=== PATIENT | female | born 1960 | race Caucasian/White ===

== ENCOUNTER → 2023-05-06 06:30 | Day surgery (SDC) | payer OTHER, SELFPAY | LOC: GI 06:30 | PROVIDERS: ATTENDING PHYSICIAN Internal Medicine | DX: Z12.11 Encounter for screening for malignant neoplasm of colon (principal); K57.30 Diverticulosis of large intestine without perforation or abscess without bleeding | CPT/HCPCS: G0121 ==

== ENCOUNTER → 2023-08-24 17:25 | Outpatient (REF) | payer OTHER, SELFPAY | LOC: HWWDC 17:25 | PROVIDERS: ATTENDING PHYSICIAN Nurse Practitioner | DX: Z12.31 Encounter for screening mammogram for malignant neoplasm of breast (principal) | CPT/HCPCS: 77063; 77067 ==

== ENCOUNTER → 2024-06-27 10:12 | Outpatient (REF) | payer OTHER, SELFPAY | LOC: HWRAD 10:12 | PROVIDERS: ATTENDING PHYSICIAN Obstetrics & Gynecology; FAMILY PHYSICIAN Internal Medicine | DX: R10.2 Pelvic and perineal pain (principal) | CPT/HCPCS: 76830; 76856 ==

== ENCOUNTER 2024-08-20 20:42 | Emergency (ER) | payer OTHER, SELFPAY ==
[2024-08-20 20:42] VITALS: BMI 23.5
[2024-08-20 20:44] VITALS: BP 153/69
[2024-08-20 20:57] LABS: % Basophils 0.5 % (0-2); % Eosinophils 5.1 % (0-6); % Immature Granulocytes 0.1 % (0-0.5); % Monocytes 6.4 % (1.7-9.3); % Neutrophils 67.9 % (42.2-75.2); Absolute Eosinophils 0.4 10^3/uL (0-0.7); Absolute Lymphocytes 1.7 10^3/uL (1.2-3.4); Absolute Monocytes 0.5 10^3/uL (0.1-0.6); Absolute Neutrophils 5.6 10^3/uL (1.4-6.5); Hematocrit 38.3 % (37.0-47.0); Hemoglobin 13.3 g/dL (12.0-16.0); Mean Corp Hgb Conc. 34.7 g/dL (33.0-37.0); Mean Corpuscular Hgb 30.9 pg (27.0-31.0); Mean Corpuscular Volume 88.9 fL (81.0-99.0); Mean Platelet Volume 9.3 fL (7.4-10.4); Nucleated Red Blood Cells % 0 %; Platelet Count 307 10^3/uL (130-400); Red Blood Cell Count 4.31 10^6/uL (4.20-5.40); Red Cell Dist. Width 12.1 % (11.5-14.5); White Blood Cell Count 8.2 10^3/uL (4.8-10.8)
[2024-08-20 21:23] LABS: ALT (SGPT) 25 U/L (0-35); AST (SGOT) 24 U/L (14-36); Albumin 4.2 g/dl (3.5-5.0); Alkaline Phosphatase 78 U/L (38-126); Blood Urea Nitrogen 11 mg/dl (7-17); Calcium 9.6 mg/dl (8.4-10.2); Carbon Dioxide 25 mmol/L (22-30); Chloride 106 mmol/L (98-107); Glucose 101 mg/dl (70-99); Potassium 4.6 mmol/L (3.5-5.1); Sodium 138 mmol/L (135-145); Total Bilirubin 0.3 mg/dl (0.2-1.3); Total Protein 7.1 g/dl (6.3-8.2); eGFR > 60.00
[2024-08-20 21:24] LABS: Lipase 40 U/L (23-300)
[2024-08-20 22:21] VITALS: BP 117/88
--- NOTE | 2024-08-20 22:28 | ED.GENMED ---
History of Present Illness
General
Chief Complaint: Abdominal Symptoms
Source: patient and spouse
Exam Limitations: none
Time Seen by Provider: 08/20/24 22:16
Nursing documentation reviewed up to this point in time: agreed with
History of Present Illness
History of Present Illness:
Note:
CHIEF COMPLAINT(S)
Abdominal pain and diarrhea for approximately 10 days.
HISTORY OF PRESENT ILLNESS
The patient, a 64-year-old female with a history of gallstones, reactive hypoglycemia, and hypothyroidism, presents with severe abdominal pain and diarrhea persistent for about 10 days. She describes the diarrhea as resembling 'jelly' and reports
experiencing it approximately six times per day. No recent travel or antibiotic use except for two courses in March was noted. The patient consumes home-grown food, including asparagus. There is no vomiting reported, though she experiences
abdominal tenderness. 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 The patient had a past occurrence of Clostridioides difficile infection, which she believes may resemble her current
symptoms, though her white blood cell count is normal at present. The provider proposed a stool test and cautioned against starting antibiotics without specific testing, mentioning the risk of exacerbating the diarrhea or causing Clostridioides
difficile infection. However, they considered empiric treatment with oral vancomycin while awaiting test results.
CHRONIC MEDICAL CONDITIONS SIGNIFICANTLY AFFECTING CARE
- Gallstones
- Reactive hypoglycemia
- Hypothyroidism
SOCIAL HISTORY
The patient reports no use of tobacco, alcohol, or recreational drugs.
MEDICATIONS
- Synthroid for hypothyroidism
- Bjgs-[id number] digestive enzymes for bile gastritis
REVIEW OF SYSTEMS
- Gastrointestinal: Severe abdominal pain, diarrhea resembling 'jelly,' abdominal tenderness. No vomiting reported.
- General: Reports of pain on presentation but not on arrival at the facility.
PHYSICAL EXAM
- Gastrointestinal: Exhibits abdominal tenderness.
Nursing notes reviewed and vital signs reviewed.
PLAN
1. Further diagnostic evaluation with a computed tomography scan if necessary, to assess for potential colitis or other inflammation.
2. Stool sample collection for testing Clostridioides difficile and other potential pathogens.
3. Discussed the empirical use of oral vancomycin while waiting for test results, due to the patients history and current symptomatology.
4. Ensure follow-up with primary care or gastroenterology for further investigation and management based on test outcomes.
DIFFERENTIAL DIAGNOSIS
The Differential Diagnosis includes, in no particular order and is not limited to:
1. Infectious colitis, including Clostridioides difficile infection
2. Inflammatory bowel disease
3. Gastroenteritis
4. Bile acid malabsorption
5. Diverticulitis
6. Ischemic colitis
7. Irritable bowel syndrome
8. Peptic ulcer disease
9. Foodborne illness
10. Medication-induced diarrhea
CARE-UPDATE
08/21/24 - 00:01
Results pending for limited sample collected. Discharge pending while awaiting dual cultures and C. difficile testing results before starting antibiotics. Follow-up planned with primary care provider.
Disposition:
SUMMARY OF ENCOUNTER
The patient, a 64-year-old female with a history of gallstones, reactive hypoglycemia, and hypothyroidism, was seen in the emergency department for severe abdominal pain and diarrhea lasting approximately 10 days. The patient reported diarrhea six
times per day and described it as resembling 'jelly.' A stool test was proposed to rule out Clostridioides difficile and other pathogens. The consideration was given to empiric treatment with oral vancomycin due to her past history of C. difficile
infection. Empirical treatment with vancomycin was discussed but withheld pending definitive stool study results.
ASSESSMENT
The patient presented with symptoms suggesting a differential of infectious colitis, Clostridioides difficile infection, inflammatory bowel disease, gastroenteritis, bile acid malabsorption, diverticulitis, ischemic colitis, irritable bowel
syndrome, peptic ulcer disease, or a foodborne illness. The current symptoms combined with the patient�s history and physical exam suggested a high index of suspicion for an infectious or inflammatory process.
PLAN
1. Recommendation for stool sample collection for Clostridioides difficile and other potential pathogens.
2. Empirical use of oral vancomycin considered while waiting for test results due to history and symptoms, but antibiotics were deferred.
3. Advised to ensure follow-up with primary care or gastroenterology for further investigation and management based on test outcomes.
FOLLOW-UP INSTRUCTIONS
Please call the office immediately to schedule a follow-up visit after the stool test results are available.
MEDICAL DECISION MAKING
Number and Complexity of Problems Addressed: The patient presented with acute gastrointestinal symptoms requiring differential diagnoses consideration including infectious and non-infectious etiologies.
Data: Tests and treatment options were evaluated, particularly stool studies for C. difficile and possible use of antibiotics were carefully considered.
Risk: Consideration of potential exacerbation of symptoms by antibiotics without definitive infection evidence, highlighting the decision to control treatment while awaiting stool culture results.
Past History
Past History
ED Past Medical History: Hypothyroidism
ED Past Surgical History: None
Social History
Tobacco: Non-smoker
Alcohol: None
Living: with family
Employment: Employed
Family History
Family History: Other (Noncontributory)
Phy Exam
Physical Exam
Physical Exam:
Physical Exam
General: no apparent distress, not acutely ill
Neck: supple. no meningeal signs. normal posterior pharynx
Heart: s1/s2 regular rate and rhythm, no murmur. equal radial
pulses.
HEENT: Pupils equal round reactive to light, EOMI
Lungs: no acute respiratory distress. clear bilaterally
Abdomen: normal bowel sounds. not tender. no CVAT
Neuro: alert and oriented. no focal neurological deficits
Skin: no rash
Psychiatric: well kept. interactive and cooperative
Extremities: no edema. good distal pulses
Course
Orders/Labs/Results
Orders:
Orders
08/20/24 20:46
IV Insert/Care/Rem.- Treatment PRN
08/20/24 20:50
Complete Blood Count/With Diff Urgent
Comprehensive Metabolic Panel Urgent
Lipase Urgent
08/20/24 23:32
CDIFF [C difficile Antigen & Toxins] Urgent
BEBA Source: Feces/Stool
Specimen Description:
Date Specimen was Collected: 08/20/24
Time Specimen was Collected: 23:31
Stool Culture Urgent
BEBA Source: Feces/Stool
Specimen Description:
Date Specimen was Collected: 08/20/24
Time Specimen was Collected: 23:31
Abnormal Lab Results
08/20/24
20:50
Lymphocytes % 20.0 L %
(20.5-51.1)
Glucose 101 H mg/dl
(70-99)
08/20/24 20:50
08/20/24 20:50
Vital Signs
Initial and Last Documented VS:
Initial Vital Signs
Temp Pulse Resp BP Pulse Ox
98.1 F 64 18 153/69 100
08/20/24 20:44 08/20/24 20:44 08/20/24 20:44 08/20/24 20:44 08/20/24 20:44
Last Documented Vital Signs
Temp Pulse Resp BP Pulse Ox
98.1 F 60 18 117/88 100
08/20/24 20:44 08/20/24 22:21 08/20/24 22:21 08/20/24 22:21 08/20/24 22:21
*Pulse Oximetry
Patient hypoxic: no (100)
*Critical Care Note
Total Time (30-74mins, 75-104mins- exclusive of procedures): Not Applicable
ED Attending Note
-
Portions of this chart may have been created with voice recognition software.� Occasional wrong word or��sound alike� substitutions may have occurred due to the inherent limitations of voice recognition software.
Discharge Plan
Departure
Patient Disposition: Home (Routine Discharge)
Date of Disposition: 08/21/24
Time of Disposition: 00:02
Patient with high blood pressure during this ER visit?: No
Condition: Good
Discharge Problem:
Diarrhea
Instructions: Diarrhea in teens and adults
Prescriptions:
No Action
Telma
1 tab PO DAILY
Patient Comments:
unsure of mg
levothyroxine [Synthroid] 100 MCG tablet
100 mcg PO DAILY
fluticasone propionate 1 SPRAY spray,suspension
1 spray intranasal BID
acetaminophen [Tylenol Extra Strength] 500 MG tablet
500 mg PO Q4HPRN PRN (Reason: mild pain) Qty: 1 0RF
oxycodone-acetaminophen 5 MG/325 MG tablet
1 tab PO Q4HPRN PRN (Reason: moderate pain) Qty: 16 0RF
Referrals:
Kendal Curran DO [Family Provider, Family Practice] - Call in 1-3 days for appt
Interventions
Interventions:
*Risk Screen - Suicide Last Done: 08/20/24 20:44
*Neglect/Abuse Screening Last Done: 08/20/24 20:44
[facility] Assessment Last Done: 08/20/24 22:31
Discharge Date and Time
Print Language: CYPRIOT
[2024-08-21 00:10] VITALS: BP 120/74
== END 2024-08-21 00:12 | disposition home or self-care (01) ==
LOC: EMR 20:42
PROVIDERS: Emergency Medicine; EMERGENCY PHYSICIAN Emergency Medicine; FAMILY PHYSICIAN Internal Medicine
DX: R19.7 Diarrhea, unspecified (principal); R10.9 Unspecified abdominal pain; E03.9 Hypothyroidism, unspecified; Z79.899 Other long term (current) drug therapy
CPT/HCPCS: 99283; 80053; 83690; 85025; 87045; 87046; 87324; 87427; 87449

== ENCOUNTER → 2024-11-14 07:42 | Outpatient (REF) | payer OTHER, SELFPAY ==
[2024-11-14 09:11] LABS: Hematocrit 39.6 % (37.0-47.0); Hemoglobin 13.4 g/dL (12.0-16.0); Mean Corp Hgb Conc. 33.8 g/dL (33.0-37.0); Mean Corpuscular Volume 90.0 fL (81.0-99.0); Nucleated Red Blood Cells % 0 %; Platelet Count 204 10^3/uL (130-400); Red Cell Dist. Width 13.2 % (11.5-14.5)
[2024-11-14 10:27] LABS: ALT (SGPT) 28 U/L (0-35); AST (SGOT) 33 U/L (14-36); Albumin 4.6 g/dl (3.5-5.0); Alkaline Phosphatase 57 U/L (38-126); Blood Urea Nitrogen 12 mg/dl (7-17); Calcium 9.3 mg/dl (8.4-10.2); Carbon Dioxide 28 mmol/L (22-30); Chloride 104 mmol/L (98-107); Glucose 79 mg/dl (70-99); HDL Cholesterol 87 mg/dl; LDL Cholesterol, Calculated 99 mg/dl; Potassium 4.0 mmol/L (3.5-5.1); Sodium 137 mmol/L (135-145); Total Protein 7.5 g/dl (6.3-8.2); Very Low Density Lipoprotein 24 mg/dl (0-30); eGFR > 60.00
== END ==
LOC: HWWDC 07:42
PROVIDERS: ATTENDING PHYSICIAN Internal Medicine; REFERRING PHYSICIAN Obstetrics & Gynecology
DX: Z12.31 Encounter for screening mammogram for malignant neoplasm of breast (principal); Z00.00 Encounter for general adult medical examination without abnormal findings; Z13.31 Encounter for screening for depression; R92.333 Mammographic heterogeneous density, bilateral breasts
CPT/HCPCS: 36415; 77063; 77067; 80053; 80061; 85025